=== PATIENT | female | born 1995 | race Caucasian/White ===

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

== ENCOUNTER 2017-03-27 11:11 | Emergency (ER) | payer BC ==
[2017-03-27 11:26] VITALS: RESP 16; TEMP 97.7
--- NOTE | 2017-03-27 12:32 | EDPHY ---
H & P Smoking Status: Never smoked Time Seen by Provider: 03/27/17 12:16 HPI/ROS: CHIEF COMPLAINT: Left lateral foot pain HISTORY OF PRESENT ILLNESS: 22-year-old female arrives via private vehicle complaining of left lateral foot pain at the 5th metatarsal and she was wearing high heels last night, rolled her foot. She is unable to bear full weight secondary to pain. Denies fall from height. Denies ankle pain. Denies proximal tibia or fibula pain. Denies fibular head pain or knee pain. Denies calcaneus pain. No paresthesia. PHYSICAL EXAM (Prior to examination, patient consented to physical exam, hands were washed and my usual and customary physical exam procedures followed) 1) GENERAL: Well-developed, well-nourished, alert and oriented. Appears to be in no acute distress. 2) HEAD: Normocephalic 3) HEENT: Pupils equal, round, reactive to light bilaterally. 4) LUNGS: Breathing comfortably. 5) MUSCULOSKELETAL: proximal tibia and fibula nontender . Ankle nontender. Lateral malleolus nontender. Tender to palpation 5th metatarsal. negative Kaur test, compartments soft 6) SKIN: intact with ecchymosis noted to the 5th metatarsal region 7) VASCULAR: DP,PT pulses and cap refill present and brisk DIFFERENTIAL DIAGNOSIS: in no particular order including but not limited to fracture, sprain, compartment syndrome Procedure: Crutches indications for crutch use discussed with patient. Patient fitted for crutches by ER staff. Observed ambulating with crutches. I think the patient has the capacity to safely use crutches. Usual and customary crutch walking precautions provided Procedure: Splint A Isaiah boot splint was applied by ER nuclear technician. After application of the splint I returned and re-examined the patient. The splint was adequately immobilizing the joint and distal to the splint the patient's circulation and sensation were intact. Patient shows no signs of compartment syndrome. Was given orthopedic precautions. (Yash Castaneda) Constitutional: Initial Vital Signs Temperature (C) 36.5 C 03/27/17 11:24 Heart Rate 89 12/01/17 11:24 Respiratory Rate 16 03/27/17 11:24 Blood Pressure 118/56 L 03/27/17 11:24 O2 Sat (%) 98 03/27/17 11:24 O2 Delivery Mode Room Air Allergies/Adverse Reactions: No Known Allergies Allergy (Verified 03/27/17 11:23) Home Medications: Medication Instructions Recorded Ortho Tri-Cyclen 28 Tablet 03/27/17 MDM/Departure - MDM Imaging Results: Images reviewed by myself (Yash Castaneda) ED Course/Re-evaluation: Re-evaluation with serial exams. No evidence of compartment syndrome.Care of patient under supervision of secondary supervising physician Dr Matt . ( Yash Castaneda) The patient was evaluated and managed by the physician phlebotomist medical lab assistant. I have reviewed this chart and I agree with the findings and plan of care as documented , as indicated by my signature. I am the secondary supervising physician. ( Agustina Matt) - Depart Disposition: Home, Routine, Self-Care Clinical Impression: Sprain of foot, left Qualifiers: Encounter type: initial encounter Qualified Code(s): S93.602A - Unspecified sprain of left foot, initial encounter Condition: Good Instructions: Foot Sprain (ED) Additional Instructions: Return to the ER immediately if you experience discoloration, have worsening pain, numbness, tingling, or any other symptoms that concern you. If you received x-rays in the emergency department today, be advised, that ligamentous , tendon, muscular, and other non-bony injury cannot be fully ruled out. Try to keep your affected extremity elevated above the level of your chest, and keep cold packs on the affected area, for the next 48 hours. Referrals: Garrett Castillo MD [Medical Doctor] - As per Instructions
[2017-03-27 13:00] VITALS: BP 125/78; PULSE 88; O2SAT 99
== END 2017-03-27 12:59 | disposition home or self-care (01) ==
DX: S93.602A Unspecified sprain of left foot, initial encounter (principal); X58.XXXA Exposure to other specified factors, initial encounter
CPT/HCPCS: L4386